=== PATIENT | male | born 1940 | race Caucasian/White ===

== ENCOUNTER 2018-08-28 15:02 | Emergency (ER) | payer OTHER ==
[~2018-08-28] VITALS: Ht 172.7 cm; Wt 73.0 kg
[2018-08-28 15:02] VITALS: BP 137/69
[2018-08-28 15:36] LABS: IMMATURE GRANULOCYTES 0.6 % (0.0-5.0); MEAN CORPUSCULAR HGB 34.9 pG CALC (26.0-32.0); MEAN CORPUSCULAR HGB CONC 32.8 g/L CALC (32.0-36.0); RED BLOOD COUNT 2.92 mill/uL (4.70-6.10); RED CELL DISTRI WIDTH 15.6 % (11.5-15.5)
[2018-08-28] MEDS ORDERED: FOLIC ACID1 MG PO (15:44)
[2018-08-28] MEDS ORDERED: FUROSEMIDE20 MG PO (15:45)
[2018-08-28 15:55] LABS: ALBUMIN 2.3 g/dL (3.2-5.0); ALKALINE PHOSPHATASE 50 u/l (38-126); AMYLASE < 30 u/l (30-110); ANION GAP 11 (6-22 (CALC)); BILIRUBIN, TOTAL 3.5 mg/dL (0.0-1.4); BUN 29 mg/dL (8-23); BUN/CREATININE RATIO 21 (12-20 (CALC)); CARBON DIOXIDE 22 mmol/l (22-30); CHLORIDE 105 mmol/l (95-108); CREATININE 1.4 mg/dL (0.7-1.3); GFR 49 ML/MIN (>=60 (CALC)); GFR FOR AFR.AMER. 60 ML/MIN (>=60 (CALC)); LIPASE 42 u/l (23-300); POTASSIUM 4.4 mmol/l (3.5-5.1); SGOT/AST 89 u/l (19-48); SODIUM 133 mmol/l (137-146); TOTAL PROTEIN 5.1 g/dL (6.3-8.2)
[2018-08-28 15:59] LABS: BAND 16 % (0-8); HEMATOCRIT 31.1 % (39.0-50.0); HEMOGLOBIN 10.2 g/dl (14.0-18.0); MANUAL DIFFERENTIAL YES; MEAN CELL VOLUME 106.5 fL CALC (80.0-100.0); PLATELET COUNT 59 thou/uL (130-400)
[2018-08-28 16:00] LABS: INTERNATIONAL NORMALIZED RATIO 1.5 RATIO (0.7-1.3); PROTHROMBIN TIME 15.5 SECONDS (9.0-12.5)
[2018-08-28 18:45] LABS: URINE BILIRUBIN - DIPSTICK NEGATIVE (NEGATIVE); URINE BLOOD DIPSTICK LARGE (NEGATIVE); URINE COLOR YELLOW; URINE GLUCOSE - DIPSTICK NEGATIVE (NEGATIVE); URINE KETONE NEGATIVE (NEGATIVE); URINE LEUK ESTERASE NEGATIVE (NEGATIVE); URINE NITRITE - DIPSTICK NEGATIVE (Negative); URINE PH 5.5 (4.5-8.0); URINE PROTEIN - DIPSTICK NEGATIVE (NEG-TRACE); URINE SPECIFIC GRAVITY >=1.030; URINE UROBILINOGEN - DIPSTICK 0.2 E.U./dL (0.2)
[2018-08-28 18:46] LABS: URINE CLARITY CLEAR
[2018-08-28 18:49] LABS: URINE WBC 0-2 WBC/hpf (0-5)
== END 2018-08-28 19:11 | disposition short-term general hospital (02) | DRG 379 ==
LOC: ED 15:02
PROVIDERS: Emergency Medicine
DX: K92.2 Gastrointestinal hemorrhage, unspecified (principal); K74.60 Unspecified cirrhosis of liver; I85.00 Esophageal varices without bleeding; R06.02 Shortness of breath; Z85.05 Personal history of malignant neoplasm of liver; R50.9 Fever, unspecified; R10.32 Left lower quadrant pain; R10.31 Right lower quadrant pain; K92.0 Hematemesis; K92.1 Melena